=== PATIENT | male | born 1975 | race Hispanic/Latino ===

== ENCOUNTER 2018-08-01 10:15 | Emergency (ER) | payer OTHER ==
[2018-08-01] MEDS ORDERED: IPRATROPIUM/ALBUTEROL SULFATE 3 ML SOLUTION IH ONE (11:26)
== END 2018-08-01 11:55 | disposition home or self-care (01) ==
LOC: EDH 10:15
DX: J20.9 Acute bronchitis, unspecified (principal); I10 Essential (primary) hypertension
CPT/HCPCS: 71046; 94640

== ENCOUNTER → 2022-03-29 | Outpatient (CLI) | payer OTHER ==
[~2022-03-29] MED LIST: ALBUTEROL 0.083% 2.5 MG/3 ML INH IH ONE
== END | disposition home or self-care (01) ==
LOC: RESP 10:16
DX: R53.83 Other fatigue (principal); Z86.16 Personal history of COVID-19
CPT/HCPCS: 94060; 94727; 94729

== ENCOUNTER 2023-01-03 16:14 | Emergency (ER) | payer OTHER ==
[~2023-01-03] VITALS: Ht 172.7 cm; Wt 79.4 kg
[2023-01-03 16:23] VITALS: BP 158/97
[2023-01-03] MEDS ORDERED: VALA10002 PO (16:45)
[2023-01-03] MEDS ORDERED: PRED50TA2 PO (16:45)
== END 2023-01-03 16:50 | disposition home or self-care (01) ==
LOC: EDH 16:14
DX: G51.0 Bell's palsy (principal); I10 Essential (primary) hypertension; Z79.899 Other long term (current) drug therapy
CPT/HCPCS: 82948

== ENCOUNTER 2024-11-14 21:26 | Inpatient (IN) | payer OTHER ==
[~2024-11-14] VITALS: Ht 172.7 cm; Wt 78.9 kg
[~2024-11-14 21:26] MED LIST changes: -ALBUTEROL 0.083% 2.5 MG/3 ML INH IH ONE; +PRED50TA2 PO; +VALA10002 PO
--- NOTE | 2024-11-14 21:52 | ERN ---
General Chief Complaint: Skin Problem Stated Complaint: LEFT FOOT SWOLLEN Time Seen by MD: 21:36 Source: patient History of Present Illness Initial Comments Is a 49-year-old male who comes in because of increased feeling of burning redness and swelling in his bilateral feet and hands. Patient states he did take some Benadryl but it did not help in the swelling persisted. He says it started after taking some Bactrim that his primary care doctor prescribed to him because of a possible pimple starting on the patient's buttocks. He has only taken two doses of the Bactrim and has stopped. Otherwise the patient is asymptomatic no upper respiratory tract infections no change in bowel habits. Able to move all his extremities no fevers or chills. No shortness of breath, no wheezing Allergies: Coded Allergies: No Known Drug Allergies (Unverified Allergy, Unknown, 01/03/23) Home Meds Active Scripts Prednisone (Prednisone) 50 Mg Tablet, 50 MG PO DAILY for 5 Days, #5 TAB 0 Refills Prov:AICHA GRANADOS MD 01/03/23 Valacyclovir HCl (Valtrex) 1,000 Mg Tablet, 1000 MG PO TID for 7 Days, #21 TAB 0 Refills Prov:AICHA GRANADOS MD 01/03/23 Past Medical History Past Medical History: Hypertension Past Surgical History: None Social History Social History: Negative Constitutional: (-) chills, (-) diaphoresis, (-) fever, (-) malaise, (-) weakness, (-) other documentation EENTM: (-) eye pain, (-) blurred vision, (-) tearing, (-) double vision, (-) ear pain, (-) ear discharge, (-) nose pain, (-) nose congestion, (-) throat pain, (-) Throat swelling, (-) mouth pain, (-) tooth pain, (-) mouth swelling, (-) other documentation Respiratory: (-) cough, (-) orthopnea, (-) short of breath, (-) stridor, (-) wheezing, (-) other documentation Cardiovascular: (-) chest pain, (-) edema, (-) palpitations, (-) syncope, (-) dyspnea on exertion, (-) other documentation Gastrointestinal/Abdominal: (-) nausea, (-) vomiting, (-) diarrhea, (-) abdominal pain, (-) abdominal distention, (-) constipation, (-) rectal bleeding, (-) dark stool/melena, (-) other documentation Musculoskeletal: (-) Neck pain, (-) back pain, (-) Flank Pain, (-) joint pain, (-) joint swelling, (-) muscle pain, (-) muscle stiffness, (-) gout, (-) other documentation Skin: (-) laceration, (-) contusion, (-) abrasion, (-) abscess, (-) rash, (-) change in color, (-) change in hair, (-) change in nails, (-) diaphoresis, (-) dryness, (-) other documentation Neuro: (-) altered mental status, (-) headache, (-) syncope, (-) paralysis, (-) numbness, (-) seizure, (-) pre-existing deficit, (-) tremors, (-) weakness, (-) dizziness, (-) slurred speech, (-) vertigo, (-) other documentation Physical Exam General Appearance: (+) no apparent distress Orientation: (+) oriented x 3 Head/Face Trauma: No Eye: bilateral eye normal inspection, bilateral eye PERRL, bilateral eye EOMI Ear, Nose, Throat: (+) hearing grossly normal, (+) normal ENT inspection Neck: (+) normal inspection, (+) supple Respiratory: (+) chest non-tender, (+) lungs clear, (+) well ventilated Heart: (+) regular, (+) no gallop Vascular: (+) no edema, (+) normal peripheral pulse, (+) no JVD Gastrointestinal: (+) soft, (+) non-tender, (+) bowel sound present Extremities Comment Patient does indeed have erythema with swelling on both feet centered around the great toes and including the web spaces. There was a blister on his left great toe. Bilateral hands also have erythema with mild swelling between the 2nd and 3rd digits and web spaces. Results Laboratory and Microbiology Lab and Micro Result Laboratory Tests Test 11/14/24 22:02 White Blood Count 10.4 K/uL (4.8-10.8) Red Blood Count 4.91 MIL/uL (4.50-6.20) Hemoglobin 14.4 g/dL (14.0-18.0) Hematocrit 43.4 % (42-54) Mean Corpuscular Volume 88.4 fL (79-99) Mean Corpuscular Hemoglobin 29.3 pg (27.0-33.0) Mean Corpuscular Hemoglobin Concent 33.2 g/dL (32.0-36.0) Red Cell Distribution Width 13.5 % (11.0-15.5) Platelet Count 281 K/uL (130-400) Mean Platelet Volume 8.9 fL (7.5-10.5) Immature Granulocyte % (Auto) 1.1 % (0-1) H Neutrophils (%) (Auto) 70.5 % (40.0-77.0) Lymphocytes (%) (Auto) 12.0 % (21.0-51.0) L Monocytes (%) (Auto) 8.9 % (3.0-13.0) Eosinophils (%) (Auto) 7.1 % (0.0-8.0) Basophils (%) (Auto) 0.4 % (0.0-5.0) Neutrophils # (Auto) 7.3 K/uL (1.8-7.7) Lymphocytes # (Auto) 1.2 K/uL (1.0-4.8) Monocytes # (Auto) 0.9 K/uL (0.1-1.0) Eosinophils # (Auto) 0.74 K/uL (0.00-0.70) H Basophils # (Auto) 0.04 K/uL (0.00-0.20) Absolute Immature Granulocyte (auto 0.11 K/uL (0-1) Nucleated Red Blood Cells 0.0 % (0.0-0.19) Sodium Level 137 mmol/L (136-145) Potassium Level 3.8 mmol/L (3.5-5.1) Chloride Level 103 mmol/L (101-111) Carbon Dioxide Level 29 mmol/L (21-32) Blood Urea Nitrogen 21 mg/dL (7-18) H Creatinine 1.2 mg/dL (0.5-1.3) Glomerular Filtration Rate Calc 73 mL/min (>90) Random Glucose 107 mg/dL (70-105) H Total Calcium 8.6 mg/dL (8.5-10.1) MDM Patient with erythema and swelling on his fingers and toes after taking two doses of Bactrim. The erythema and swelling is not the typical rash for a Johnson Aldair syndrome, but this does not rule out Johnson-Aldair syndrome. I will give the patient some IV steroids. I think the patient needs to be observed for several hours be sure this erythema does not spread and turn into something serious. Order written at 10:00 p.m.. Laboratory results have come back patient has a normal white cell count but he does have eosinophilia. His chemistry panel is also normal. His rash has not receded in his still warm even after the dose of steroids. This most likely is a drug reaction to the Bactrim. The patient needs to be admitted to the hospital for observation to be sure he does not experience anaphylaxis or that his rash spreads. Going out on a limb I will order blood cultures. I will also order clindamycin. I examined the patient's lesion on his buttocks for which his primary care doctor prescribed the Bactrim. It looks like a simple pigmented lesion there was no erythema there is no warmth there is no swelling. Patient agrees to be admitted for observation. Hospitalist service has agreed to admit the patient for observation. ED Course Orders Procedure Category Date Status Time Methylprednisolone PHA 11/14/24 Complete Succ 40mg (Solu-Medro 22:00 Cbc With Differential LAB 11/14/24 Complete 21:53 Basic Metabolic Panel LAB 11/14/24 Complete 21:53 Diphenhydramine Hcl PHA 11/14/24 Complete (Benadryl Inj) 22:30 Famotidine 20mg Vial PHA 11/14/24 Complete (Pepcid 20mg Vial) 22:30 Blood Cult AROLDO 11/15/24 In Process 00:00 Clindamycin Ivpb PHA 11/15/24 Complete 900mg/50ml (Cleocin 00:30 Current Medications Medications (Trade) Dose Ordered Sig/Veronica Route PRN Reason Start Time Stop Time Status Last Admin Dose Admin Clindamycin HCl/ Dextrose (Cleocin Ivpb 900mg) 900 mg ONCE ONCE IV 11/15/24 00:30 11/15/24 00:31 DC Diphenhydramine HCl (BENAdryl INJ) 25 mg ONCE ONCE IV 11/14/24 22:30 11/14/24 22:31 DC 11/14/24 22:25 Famotidine (Pepcid 20mg Vial) 20 mg ONCE ONCE IV 11/14/24 22:30 11/14/24 22:31 DC 11/14/24 22:25 Methylprednisolone Sodium Succinate (Solu-medROL 40MG) 40 mg ONCE ONCE IVP 11/14/24 22:00 11/14/24 22:01 DC 11/14/24 22:17 Vital Signs Date Time Temp Pulse Resp B/P (MAP) Pulse Ox O2 Delivery O2 Flow Rate FiO2 11/14/24 23:01 94 16 145/87 99 Room Air* 0 21 11/14/24 21:32 99.5 102 20 148/101 100 Room Air DX & DISP Disposition: Inpatient Departure Impression: Primary Impression: Drug reaction Condition: Stable Referrals: JEAN CLAUDE DEL CASTILLO MD (PCP) LOREN MAYO MD Nov 14, 2024 21:52
[2024-11-14 22:08] LABS: BASOPHILS # (AUTO) 0.04 K/uL (0.00-0.20); BASOPHILS % (AUTO) 0.4 % (0.0-5.0); EOSINOPHILS # (AUTO) 0.74 K/uL (0.00-0.70); EOSINOPHILS % (AUTO) 7.1 % (0.0-8.0); HEMATOCRIT 43.4 % (42-54); IMMATURE GRANULOCYTE ABSOLUTE 0.11 K/uL (0-1); LYMPHOCYTES # (AUTO) 1.2 K/uL (1.0-4.8); MEAN CORPUSCULAR HEMOGLOBIN 29.3 pg (27.0-33.0); MEAN CORPUSCULAR HGB CONC 33.2 g/dL (32.0-36.0); MEAN CORPUSCULAR VOLUME 88.4 fL (79-99); MONOCYTES # (AUTO) 0.9 K/uL (0.1-1.0); MONOCYTES % (AUTO) 8.9 % (3.0-13.0); NEUTROPHILS # (AUTO) 7.3 K/uL (1.8-7.7); NEUTROPHILS % (AUTO) 70.5 % (40.0-77.0); PLATELET COUNT (AUTO) 281 K/uL (130-400); RED BLOOD CELL COUNT(AUTO) 4.91 MIL/uL (4.50-6.20); RED CELL DISTRIBUTION WIDTH 13.5 % (11.0-15.5); WHITE BLOOD COUNT (AUTO) 10.4 K/uL (4.8-10.8)
[2024-11-14] MEDS: Solu-medROL 40MG VIAL IVP ONE (22:17)
[2024-11-14 22:23] LABS: CREATININE 1.2 mg/dL (0.5-1.3); POTASSIUM 3.8 mmol/L (3.5-5.1)
[2024-11-14] MEDS: FAMOTIDINE 20MG VIAL IV ONE (22:25)
[2024-11-14] MEDS: DiphenhydrAMINE HCL 50 MG/ML VIAL IV ONE (22:25)
[2024-11-15] VITALS (7 sets, daily range): BP systolic 126–140; BP diastolic 70–85; PULSE 78–87; RESP 12–20; TEMP 98.3–98.7; O2SAT 96
[2024-11-15] MEDS: CLINDAMYCIN IVPB 900MG/50ML IV ONE (00:51)
--- NOTE | 2024-11-15 01:46 | HP ---
[facility] Date of Service: Nov 15, 2024 Time of Service: 00:45 PCP: Erik Gordon HISTORY OF PRESENT ILLNESS: This is a 49-year-old male with past medical history of hypertension who presents to the ED for complaints of burning redness and swelling of both hands and feet.Patient reports he has a pimple ,possible boil on his right buttock and saw his PCP yesterday and prescribed him with Bactrim and he took 2 doses of it in total and he stopped because he developed sudden onset of above symptoms and he also noticed around his body and he has blister also on his left foot and right hand and patient took Benadryl but to no relief .Patient reports he developed chills and body aches so he decided to come to the ED for evaluation . Upon ER arrival vital signs temperature 99.5, heart rate 102, blood pressure 148/101 saturation 100% on room air. Seen and examined patient in the ER awake,alert and coherent,appears comfortable .Patient denies nausea,vomiting,chest pain,palpitation,shortness of breath, tongue swelling, and abdominal pain. Latest vital signs heart rate 94, blood pressure 145/87 saturation 99% on room air. Labs: WBC 10, hemoglobin 14, hematocrit 43 platelet count 281, Eosinophils 0.74. BUN 21, creatinine 1.2, GFR 73 glucose 107, total calcium 8.6. While in the ER patient received Solu- Medrol 40 mg IV, Benadryl 25 mg IV, famotidine 20 mg IV and clindamycin 900 mg IV. We will admit patient for further medical management. REVIEW OF SYSTEMS CONSTITUTIONAL: Complained of chills and body aches Denies fevers or night sweats. No unintentional weight loss reported. NEUROLOGICAL: Denies headache, amaurosis fugax, motor weakness, sensory deficit, vertigo/spinning sensation, gait abnormalities, or tremors. ENT: No hearing loss, otalgia, otorrhea, rhinitis, rhinorrhea, hoarseness, or sore throat. CARDIOVASCULAR: Denies any exertional angina, dyspnea on exertion, orthopnea, paroxysmal nocturnal dyspnea, palpitations, life-threatening arrhythmias, claudication. PULMONARY: Denies any shortness of breath, cough, phlegm/sputum, hemoptysis, pleuritic chest pain. SLEEP: Denies morning headaches, daytime somnolence or napping. Denies difficulty falling asleep, staying asleep, waking from sleep. Denies knowledge of snoring. GASTROINTESTINAL: Denies any type of dysphagia to either liquids or solids. Denies nausea, vomiting, pyrosis, early satiety, abdominal pain, diarrhea, constipation, or changes in stool consistency or caliber. Denies coffee-ground emesis, hematemesis, hematochezia, or melanotic stools. GENITOURINARY: Denies frequency, urgency, nocturia, hematuria or incontinence (Storage/Irritative symptoms.) Low urinary stream, straining to void, urinary intermittency or hesitancy, splitting of the voiding stream, terminal dribbling. ENDOCRINOLOGIC: Denies polyuria, polydipsia, polyphagia or heat/cold intolerances. HEMATOLOGIC: Denies thrombophilia/previous clots, or coagulopathy/bleeding disorders. ONCOLOGIC: Denies personal history of malignancy. DERMATOLOGIC: Complained of Burning redness of both hands and feet. Redness on the abdomen PSYCHIATRIC: Denies any suicidal or homicidal ideation. Denies hallucinations. PAST MEDICAL HISTORY: [Hypertension ] PAST SURGICAL HISTORY: [ None ] PAST SOCIAL HISTORY: [ Patient lives with .Patient denies alcohol,cigarette and recreational drug use ] FAMILY HISTORY: [ Noncontributory ] Coded Allergies: No Known Drug Allergies (Unverified Allergy, Unknown, 01/03/23) PHYSICAL EXAM GENERAL APPEARANCE: The patient is awake, alert, and oriented, in no acute cardiopulmonary distress. NEUROLOGICAL: Cranial nerves II-XII grossly intact. Motor is 5/5 in bilateral upper and lower extremities proximal to distal. No sensory deficits. HEENT: Face is symmetric. Pupils are equal and reactive. Extraocular movements are intact. NECK: Supple. No JVD. No thyromegaly. No submental, submandibular, pre- /postauricular, occipital or supraclavicular lymphadenopathy. CHEST: Normal chest expansion. No Telemetry. LUNGS: Absence of any rales, rhonchi or any wheezing. CARDIOVASCULAR: Regular. S1 and S2 normal. No appreciable rubs, murmurs or gallops. ABDOMEN: Soft, nontender, and nondistended. There is no rebound, voluntary guarding, or rigidity. : Deferred. No Becker. EXTREMITIES: Non-edematous and not cyanotic. No clubbing. Good capillary refi ll. SKIN: Erythema to both feet and hands left foot blister right hand blister. Boil to right buttock Vital Sign (Last 24 Hours) 11/14/24 11/14/24 21:32 23:01 Temp 99.5 Pulse 94 Resp 16 B/P (MAP) 145/87 Pulse Ox 99 O2 Delivery Room Air* O2 Flow Rate 0 FiO2 21 LABS: Laboratory: Test 11/14/24 22:02 Range/Units White Blood Count 10.4 4.8-10.8 K/uL Red Blood Count 4.91 4.50-6.20 MIL/uL Hemoglobin 14.4 14.0-18.0 g/dL Hematocrit 43.4 42-54 % Mean Corpuscular Volume 88.4 79-99 fL Mean Corpuscular Hemoglobin 29.3 27.0-33.0 pg Mean Corpuscular Hemoglobin Concent 33.2 32.0-36.0 g/dL Red Cell Distribution Width 13.5 11.0-15.5 % Platelet Count 281 130-400 K/uL Mean Platelet Volume 8.9 7.5-10.5 fL Immature Granulocyte % (Auto) 1.1 H 0-1 % Neutrophils (%) (Auto) 70.5 40.0-77.0 % Lymphocytes (%) (Auto) 12.0 L 21.0-51.0 % Monocytes (%) (Auto) 8.9 3.0-13.0 % Eosinophils (%) (Auto) 7.1 0.0-8.0 % Basophils (%) (Auto) 0.4 0.0-5.0 % Neutrophils # (Auto) 7.3 1.8-7.7 K/uL Lymphocytes # (Auto) 1.2 1.0-4.8 K/uL Monocytes # (Auto) 0.9 0.1-1.0 K/uL Eosinophils # (Auto) 0.74 H 0.00-0.70 K/uL Basophils # (Auto) 0.04 0.00-0.20 K/uL Absolute Immature Granulocyte (auto 0.11 0-1 K/uL Nucleated Red Blood Cells 0.0 0.0-0.19 % Sodium Level 137 136-145 mmol/L Potassium Level 3.8 3.5-5.1 mmol/L Chloride Level 103 101-111 mmol/L Carbon Dioxide Level 29 21-32 mmol/L Blood Urea Nitrogen 21 H 7-18 mg/dL Creatinine 1.2 0.5-1.3 mg/dL Glomerular Filtration Rate Calc 73 >90 mL/min Random Glucose 107 H 70-105 mg/dL Total Calcium 8.6 8.5-10.1 mg/dL DIAGNOSTICS / RADIOLOGY: [ ] ASSESSMENT: Severe allergic reaction to Bactrim POA Suspected drug -induced skin reaction concern for bullous drug eruption POA Possible Furuncle of the right gluteal region POA Hypertension POA PLAN: We will admit patient in medical floor We we will start patient on clear diet We will start NS @ 100 ml / hr and re evaluate We will continue clindamycin IV Q 8 hours for empiric coverage We will start patient on methylprednisolone 40 mg IV daily x 2 doses and re evaluate We will start on Famotidine 20 mg IV bid for GI prophylaxis We will replace electrolytes as needed per protocol We will add prn medication for fever,pain,cough , nausea and vomiting We will reconcile home meds once medlist available We will seek wound care eval and management service We will request labs in am Further orders to follow depending on above results Case discussed with attending physician and came up with above treatment and plan of care. ADVANCED CARE PLANNING 1. Which of the following were discussed? Hospice Care - No Therapeutic options - Yes Advance Directives - No Other discussions - 2. Discussed with who? Patient 3. Voluntary nature of this service was explained to the patient? Yes 4. Amount of time spent - __20 5. Reviewed by Physician? (if this service was performed by NPP) Yes Patient seen and examined by me. Agree with note by PERSONNEL QUALITY ASSURANCE AUDITOR SEE ADDITIONAL ORDERS PER CHART DISCUSSED WITH NURSING STAFF JAIR MCGUIRE GLUING MACHINE OFFBEARER Nov 15, 2024 01:46
[2024-11-15] MEDS ORDERED: acetaMINOPHEN 325 MG TAB PO PRN (02:00)
[2024-11-15] MEDS ORDERED: DiphenhydrAMINE HCL 50 MG/ML VIAL IV PRN (02:00)
[2024-11-15] MEDS ORDERED: hydrALAZine 20MG/ML VIAL IV PRN (02:00)
[2024-11-15] MEDS ORDERED: ketOROlac 15MG/ML VIAL (15MG/ML) IV PRN (02:00)
[2024-11-15] MEDS ORDERED: ondanSETRON 4MG INJ IV PRN (02:00)
--- NOTE | 2024-11-15 03:00 | NUR ---
ADMIT PT ADMITTED TO ROOM 305, AAOX4. NOTED 2 BLISTERS TO LEFT FOOT WITH SWELLING. DENIES ANY PAINS AT THIS TIME. HUNG IVF OF NS REGULATED AT 100CC/HR. ADMISSION CARE DONE. ADMISSION DATA BASE COMPLETED. ORIENTED TO ROOM AND UNIT. CALL LIGHT WITHIN REACH. IN FOR MORE CARE AND MANAGEMENT. Addendum: 11/15/24 at 0338 by MATT MCCORD RN RN Amended: Links added.
[2024-11-15] MEDS: 0.9%NACL 1000ML 1,000 ML IV SCH (03:05)
[2024-11-15] MEDS ORDERED: AMLO-258 PO (03:14)
[2024-11-15] MEDS ORDERED: SULF1TAB42 PO (03:14)
--- NOTE | 2024-11-15 05:24 | NUR ---
ROUNDS PT RESTING WELL, FAIRLY ASLEEP WITH RESPIRATIONS EVEN AND UNLABORED. NO DISTRESS NOTED. KEPT RESTED AND COMFORTABLE. FOR MORE CARE.
[2024-11-15 06:25] LABS: BASOPHILS # (AUTO) 0.02 K/uL (0.00-0.20); BASOPHILS % (AUTO) 0.3 % (0.0-5.0); EOSINOPHILS # (AUTO) 0.01 K/uL (0.00-0.70); EOSINOPHILS % (AUTO) 0.1 % (0.0-8.0); HEMATOCRIT 43.7 % (42-54); IMMATURE GRANULOCYTE ABSOLUTE 0.11 K/uL (0-1); LYMPHOCYTES % (AUTO) 12.8 % (21.0-51.0); MEAN CORPUSCULAR HEMOGLOBIN 29.2 pg (27.0-33.0); MEAN CORPUSCULAR HGB CONC 32.7 g/dL (32.0-36.0); MEAN CORPUSCULAR VOLUME 89.2 fL (79-99); MONOCYTES # (AUTO) 0.1 K/uL (0.1-1.0); MONOCYTES % (AUTO) 1.5 % (3.0-13.0); NEUTROPHILS # (AUTO) 6.6 K/uL (1.8-7.7); NEUTROPHILS % (AUTO) 83.9 % (40.0-77.0); PLATELET COUNT (AUTO) 274 K/uL (130-400); RED CELL DISTRIBUTION WIDTH 13.5 % (11.0-15.5); WHITE BLOOD COUNT (AUTO) 7.8 K/uL (4.8-10.8)
[2024-11-15 07:29] LABS: ALBUMIN 3.5 g/dL (3.5-5.0); BILIRUBIN,TOTAL 0.5 mg/dL (0.2-1.0); MAGNESIUM 2.1 mg/dL (1.80-2.40); POTASSIUM 4.7 mmol/L (3.5-5.1); TOTAL PROTEIN, SERUM 6.9 g/dL (6.0-8.3)
[2024-11-15 08:15] LABS: ERYTHROCYTE SEDIMENTATION RATE 6 MM/HR (0-20)
[2024-11-15] MEDS: CLINDAMYCIN IVPB 600MG/50ML 50 ML IV SCH (08:44)
[2024-11-15] MEDS: FAMOTIDINE 20MG VIAL IV SCH (08:44)
[2024-11-15] MEDS: Solu-medROL 40MG VIAL IVP SCH (08:44)
--- NOTE | 2024-11-15 13:51 | NUR ---
DCP: INITIAL ASSESSMENT Patient lives with mother. He has no home services. DME: BPM. Patient is able to complete ADLs independently and drives. PCP is Dr. Evan Trujillo. Pharmacy is [facility] in [place]. Patient voiced no safety concerns regarding returning home and states she has no difficulty with housing or buying food. DCP is home. Addendum: 11/15/24 at 1354 by ALESSIA GILMAN SS Amended: Links added.
[2024-11-15] MEDS: DOXYCYCLINE 100MG+NS 250ML 250 ML IV SCH (14:45)
--- NOTE | 2024-11-15 15:53 | HMCIMG ---
CT LOW EXT W/O CONTRAST HISTORY: left foot wound TECHNIQUE: CT LOW EXT W/O CONTRAST. Axial images of the left foot were performed. Coronal and sagittal reformats were obtained. FINDINGS/IMPRESSION: No displaced fracture or dislocation is seen. Mild diffuse soft tissue swelling is noted. No definite erosive changes are seen to suggest osteomyelitis. Correlate clinically.
[2024-11-16] VITALS (7 sets, daily range): BP systolic 121–137; BP diastolic 72–82; PULSE 69–79; RESP 12–20; TEMP 97.6–98.1; O2SAT 96
[2024-11-16 04:56] LABS: BASOPHILS # (AUTO) 0.02 K/uL (0.00-0.20); BASOPHILS % (AUTO) 0.1 % (0.0-5.0); HEMATOCRIT 41.3 % (42-54); IMMATURE GRANULOCYTE ABSOLUTE 0.12 K/uL (0-1); LYMPHOCYTES # (AUTO) 1.5 K/uL (1.0-4.8); LYMPHOCYTES % (AUTO) 10.5 % (21.0-51.0); MEAN CORPUSCULAR HEMOGLOBIN 29.7 pg (27.0-33.0); MEAN CORPUSCULAR HGB CONC 33.2 g/dL (32.0-36.0); MEAN CORPUSCULAR VOLUME 89.4 fL (79-99); MONOCYTES # (AUTO) 0.6 K/uL (0.1-1.0); MONOCYTES % (AUTO) 4.6 % (3.0-13.0); NEUTROPHILS # (AUTO) 11.6 K/uL (1.8-7.7); NEUTROPHILS % (AUTO) 83.9 % (40.0-77.0); PLATELET COUNT (AUTO) 274 K/uL (130-400); RED BLOOD CELL COUNT(AUTO) 4.62 MIL/uL (4.50-6.20); RED CELL DISTRIBUTION WIDTH 13.8 % (11.0-15.5); WHITE BLOOD COUNT (AUTO) 13.8 K/uL (4.8-10.8)
[2024-11-16 05:36] LABS: ALBUMIN 3.3 g/dL (3.5-5.0); BILIRUBIN,TOTAL 0.3 mg/dL (0.2-1.0); CREATININE 0.9 mg/dL (0.5-1.3); POTASSIUM 4.9 mmol/L (3.5-5.1); TOTAL PROTEIN, SERUM 6.7 g/dL (6.0-8.3)
[2024-11-16] MEDS: DiphenhydrAMINE HCL 25 MG CAPSULE PO SCH (12:27)
--- NOTE | 2024-11-16 12:32 | PN ---
[facility] PROGRESS NOTE Date of Service: Nov 16, 2024 Time of Service: 12:16 SUBJECTIVE: [49-year-old male with past medical history of hypertension who presents to the ED for complaints of burning redness and swelling of both hands and feet.Patient reports he has a pimple ,possible boil on his right buttock and saw his PCP yesterday and prescribed him with Bactrim and he took 2 doses of it in total and he stopped because he developed sudden onset of above symptoms and he also noticed around his body and he has blister also on his left foot and right hand and patient took Benadryl but to no relief .Patient reports he developed chills and body aches so he decided to come to the ED for evaluation . Upon ER arrival vital signs temperature 99.5, heart rate 102, blood pressure 148/101 saturation 100% on room air. Seen and examined patient in the ER awake,alert and coherent,appears comfortable .Patient denies nausea,vomiting,chest pain,palpitation,shortness of breath, tongue swelling, and abdominal pain. Latest vital signs heart rate 94, blood pressure 145/87 saturation 99% on room air. Labs: WBC 10, hemoglobin 14, hematocrit 43 platelet count 281, Eosinophils 0.74. BUN 21, creatinine 1.2, GFR 73 glucose 107, total calcium 8.6. While in the ER patient received Solu- Medrol 40 mg IV, Benadryl 25 mg IV, famotidine 20 mg IV and clindamycin 900 mg IV. We will admit patient for further medical management. 11/16/2024. Patient was seen and examined yesterday and today along with RN. The blister on the left toe is slightly enlarged but the plantar surface blister on the left foot is better the rash on the abdomen is gone totally resolve, his CRP has decreased almost 50%. CT scan of the foot was done no abscess identified soft tissue swelling only. He will be seen by infectious disease doctor and wound care. He is continued on IV steroids, IV doxycycline IV Pepcid and p.r.n. Benadryl] REVIEW OF SYSTEMS CONSTITUTIONAL: Complained of chills and body aches Denies fevers or night sweats. No unintentional weight loss reported. NEUROLOGICAL: Denies headache, amaurosis fugax, motor weakness, sensory deficit, vertigo/spinning sensation, gait abnormalities, or tremors. ENT: No hearing loss, otalgia, otorrhea, rhinitis, rhinorrhea, hoarseness, or sore throat. CARDIOVASCULAR: Denies any exertional angina, dyspnea on exertion, orthopnea, paroxysmal nocturnal dyspnea, palpitations, life-threatening arrhythmias, claudication. PULMONARY: Denies any shortness of breath, cough, phlegm/sputum, hemoptysis, pleuritic chest pain. SLEEP: Denies morning headaches, daytime somnolence or napping. Denies difficulty falling asleep, staying asleep, waking from sleep. Denies knowledge of snoring. GASTROINTESTINAL: Denies any type of dysphagia to either liquids or solids. Denies nausea, vomiting, pyrosis, early satiety, abdominal pain, diarrhea, c onstipation, or changes in stool consistency or caliber. Denies coffee-ground emesis, hematemesis, hematochezia, or melanotic stools. GENITOURINARY: Denies frequency, urgency, nocturia, hematuria or incontinence (Storage/Irritative symptoms.) Low urinary stream, straining to void, urinary intermittency or hesitancy, splitting of the voiding stream, terminal dribbling. ENDOCRINOLOGIC: Denies polyuria, polydipsia, polyphagia or heat/cold intolerances. HEMATOLOGIC: Denies thrombophilia/previous clots, or coagulopathy/bleeding disorders. ONCOLOGIC: Denies personal history of malignancy. DERMATOLOGIC: Complained of Burning redness of both hands and feet. Redness on the abdomen PSYCHIATRIC: Denies any suicidal or homicidal ideation. Denies hallucinations. PHYSICAL EXAM GENERAL APPEARANCE: The patient is awake, alert, and oriented, in no acute cardiopulmonary distress. NEUROLOGICAL: Cranial nerves II-XII grossly intact. Motor is 5/5 in bilateral upper and lower extremities proximal to distal. No sensory deficits. HEENT: Face is symmetric. Pupils are equal and reactive. Extraocular movements are intact. NECK: Supple. No JVD. No thyromegaly. No submental, submandibular, pre- /postauricular, occipital or supraclavicular lymphadenopathy. CHEST: Normal chest expansion. No Telemetry. LUNGS: Absence of any rales, rhonchi or any wheezing. CARDIOVASCULAR: Regular. S1 and S2 normal. No appreciable rubs, murmurs or gallops. ABDOMEN: Soft, nontender, and nondistended. There is no rebound, voluntary guarding, or rigidity. : Deferred. No Becker. EXTREMITIES: Non-edematous and not cyanotic. No clubbing. Good capillary refill. SKIN: Erythema to both feet and hands left foot blister right hand blister. Boil to right buttock Vital Signs (last 8hr) Date Time Temp Pulse Resp B/P (MAP) Pulse Ox O2 Delivery O2 Flow Rate FiO2 11/16/24 12:00 97.9 72 20 131/82 94 Room Air 11/16/24 08:00 97.7 72 20 128/72 96 Room Air LABS: Laboratory: Test 11/16/24 04:28 11/15/24 06:04 Range/Units White Blood Count 13.8 #H 4.8-10.8 K/uL Red Blood Count 4.62 4.50-6.20 MIL/uL Hemoglobin 13.7 L 14.0-18.0 g/dL Hematocrit 41.3 L 42-54 % Mean Corpuscular Volume 89.4 79-99 fL Mean Corpuscular Hemoglobin 29.7 27.0-33.0 pg Mean Corpuscular Hemoglobin Concent 33.2 32.0-36.0 g/dL Red Cell Distribution Width 13.8 11.0-15.5 % Platelet Count 274 130-400 K/uL Mean Platelet Volume 9.3 7.5-10.5 fL Immature Granulocyte % (Auto) 0.9 0-1 % Neutrophils (%) (Auto) 83.9 H 40.0-77.0 % Lymphocytes (%) (Auto) 10.5 L 21.0-51.0 % Monocytes (%) (Auto) 4.6 3.0-13.0 % Eosinophils (%) (Auto) 0.0 0.0-8.0 % Basophils (%) (Auto) 0.1 0.0-5.0 % Neutrophils # (Auto) 11.6 H 1.8-7.7 K/uL Lymphocytes # (Auto) 1.5 1.0-4.8 K/uL Monocytes # (Auto) 0.6 0.1-1.0 K/uL Eosinophils # (Auto) 0.00 0.00-0.70 K/uL Basophils # (Auto) 0.02 0.00-0.20 K/uL Absolute Immature Granulocyte (auto 0.12 0-1 K/uL Nucleated Red Blood Cells 0.0 0.0-0.19 % Sodium Level 141 136-145 mmol/L Potassium Level 4.9 3.5-5.1 mmol/L Chloride Level 108 101-111 mmol/L Carbon Dioxide Level 26 21-32 mmol/L Blood Urea Nitrogen 17 7-18 mg/dL Creatinine 0.9 0.5-1.3 mg/dL Glomerular Filtration Rate Calc 103 >90 mL/min Random Glucose 137 H 70-105 mg/dL Total Calcium 8.6 8.5-10.1 mg/dL Total Bilirubin 0.3 # 0.2-1.0 mg/dL Aspartate Amino Transf (AST/SGOT) 17 10-37 U/L Alanine Aminotransferase (ALT/SGPT) 27 12-78 U/L Alkaline Phosphatase 84 50-136 U/L C-Reactive Protein, Quantitative 21.00 H 0.5-3.0 mg/L Total Protein 6.7 6.0-8.3 g/dL Albumin 3.3 L 3.5-5.0 g/dL Procalcitonin < 0.05 L 0.05-0.5 ng/mL Erythrocyte Sedimentation Rate 6 0-20 MM/HR Lactic Acid Level 1.1 0.8-2.5 mmol/L Magnesium Level 2.10 1.80-2.40 mg/dL Current Medications Medications (Trade) Dose Ordered Sig/Veronica Route PRN Reason Start Time Stop Time Status Last Admin Dose Admin Acetaminophen (TYLenol 325MG TAB) 650 mg Q4H PRN PO MILD PAIN (1-3) 11/15/24 02:00 12/15/24 01:59 Acetaminophen (TYLenol 325MG TAB) 650 mg Q6H PRN PO TEMPERATURE GREATER THAN 101.5 11/15/24 02:00 12/15/24 01:59 Clindamycin HCl/ Dextrose 50 ml @ 100 mls/hr Q8H IV 11/15/24 09:00 11/15/24 10:02 DC 11/15/24 08:44 100 MLS/HR Diphenhydramine HCl (BENAdryl CAP) 25 mg Q8H PO 11/16/24 11:30 12/16/24 11:29 Diphenhydramine HCl (BENAdryl INJ) 25 mg Q6H PRN IV ITCHING 11/15/24 02:00 12/15/24 01:59 Doxycycline Hyclate 250 ml @ 125 mls/hr Q12H IV 11/15/24 14:30 11/25/24 14:29 11/16/24 02:19 125 MLS/HR Famotidine (Pepcid 20mg Vial) 20 mg BID IV 11/15/24 09:00 12/15/24 08:59 11/16/24 09:32 20 MG Hydralazine HCl (APRESOLine 20MG INJ) 10 mg Q6H PRN IV For:SBP above 160;DBP above 90 11/15/24 02:00 12/15/24 01:59 Ketorolac Tromethamine (toRADol) 15 mg Q6H PRN IV MODERATE PAIN (4-6) 11/15/24 02:00 11/20/24 01:59 Methylprednisolone Sodium Succinate (Solu-medROL 40MG) 40 mg BID IVP 11/15/24 09:00 12/15/24 08:59 11/16/24 09:32 40 MG Ondansetron HCl (zoFRAN 4MG INJ) 4 mg Q6H PRN IV NAUSEA/VOMITING 11/15/24 02:00 12/15/24 01:59 Sodium Chloride 1,000 ml @ 100 mls/hr Q10H IV 11/15/24 02:00 12/15/24 01:59 11/16/24 09:32 100 MLS/HR DIAGNOSTICS / RADIOLOGY: [ ] ASSESSMENT: Severe allergic reaction to Bactrim POA Suspected drug -induced skin reaction concern for bullous drug eruption POA Possible Furuncle of the right gluteal region POA Hypertension POA PLAN: Unlikely that patient has Cosme Aldair syndrome or 10 as the reaction happened immediately likely IgE mediated. But does look like Bactrim or sulfa drug associated drug reaction. I have requested Infectious Disease consult as well as wound care consult if indicated we will go for skin biopsy. Does no mucosal lesions , no ocular or lung involvement at this point. There is no eosinophilia. There is no fever and no prodromal symptoms no mucositis or extensive epidermal detachment. Continue IV steroids IV H2 and H1 blockers. GI DVT prophylaxis per protocol ADRIANO MARIN MD Nov 16, 2024 12:32
--- NOTE | 2024-11-16 19:12 | HMCIMG ---
US SOFT TISSUE GROIN REASON: right buttock wound/abscess. COMPARISON: None TECHNIQUE: Right buttock ultrasound study was performed. FINDINGS: Saline as changes are seen with soft tissue hyperemia. In the region of interest, there is small abscess measuring 13 x 6 x 11 mm. IMPRESSION: Right buttock subcutaneous abscess measuring 13 x 6 x 11 mm.
[2024-11-16] MEDS: acetaMINOPHEN 325 MG TAB PO PRN (22:17)
[2024-11-17 03:53] VITALS: BP 124/70; PULSE 66; RESP 12; TEMP 98.4
[2024-11-17 04:38] LABS: BASOPHILS # (AUTO) 0.03 K/uL (0.00-0.20); BASOPHILS % (AUTO) 0.2 % (0.0-5.0); EOSINOPHILS # (AUTO) 0.01 K/uL (0.00-0.70); EOSINOPHILS % (AUTO) 0.1 % (0.0-8.0); HEMATOCRIT 41.1 % (42-54); IMMATURE GRANULOCYTE ABSOLUTE 0.32 K/uL (0-1); LYMPHOCYTES # (AUTO) 1.6 K/uL (1.0-4.8); LYMPHOCYTES % (AUTO) 11.1 % (21.0-51.0); MEAN CORPUSCULAR HEMOGLOBIN 29.5 pg (27.0-33.0); MEAN CORPUSCULAR HGB CONC 32.6 g/dL (32.0-36.0); MEAN CORPUSCULAR VOLUME 90.5 fL (79-99); MONOCYTES # (AUTO) 0.7 K/uL (0.1-1.0); MONOCYTES % (AUTO) 4.9 % (3.0-13.0); NEUTROPHILS # (AUTO) 11.4 K/uL (1.8-7.7); NEUTROPHILS % (AUTO) 81.4 % (40.0-77.0); PLATELET COUNT (AUTO) 275 K/uL (130-400); RED BLOOD CELL COUNT(AUTO) 4.54 MIL/uL (4.50-6.20); RED CELL DISTRIBUTION WIDTH 13.8 % (11.0-15.5)
[2024-11-17 04:57] LABS: ALBUMIN 3.2 g/dL (3.5-5.0); BILIRUBIN,TOTAL 0.3 mg/dL (0.2-1.0); POTASSIUM 4.1 mmol/L (3.5-5.1); TOTAL PROTEIN, SERUM 6.4 g/dL (6.0-8.3)
[2024-11-17 07:39] VITALS: BP 130/82; PULSE 63; RESP 19; TEMP 97.9
[2024-11-17 08:00] VITALS: O2SAT 99
[2024-11-17 12:00] VITALS: BP 146/80; PULSE 63; RESP 19; TEMP 98
[2024-11-17] MEDS ORDERED: VANCOMYCIN PROTOCOL PER PHARMACY IV SCH (12:00)
--- NOTE | 2024-11-17 12:31 | PN ---
[facility] PROGRESS NOTE Date of Service: Nov 17, 2024 Time of Service: 12:21 SUBJECTIVE: 49-year-old male with past medical history of hypertension who presents to the ED for complaints of burning redness and swelling of both hands and feet.Patient reports he has a pimple ,possible boil on his right buttock and saw his PCP yesterday and prescribed him with Bactrim and he took 2 doses of it in total and he stopped because he developed sudden onset of above symptoms and he also noticed around his body and he has blister also on his left foot and right hand and patient took Benadryl but to no relief .Patient reports he developed chills and body aches so he decided to come to the ED for evaluation . Upon ER arrival vital signs temperature 99.5, heart rate 102, blood pressure 148/101 saturation 100% on room air. Seen and examined patient in the ER awake,alert and coherent,appears comfortable .Patient denies nausea,vomiting,chest pain,palpitation,shortness of breath, tongue swelling, and abdominal pain. Latest vital signs heart rate 94, blood pressure 145/87 saturation 99% on room air. Labs: WBC 10, hemoglobin 14, hematocrit 43 platelet count 281, Eosinophils 0.74. BUN 21, creatinine 1.2, GFR 73 glucose 107, total calcium 8.6. While in the ER patient received Solu- Medrol 40 mg IV, Benadryl 25 mg IV, famotidine 20 mg IV and clindamycin 900 mg IV. We will admit patient for further medical management. 11/16/2024. Patient was seen and examined yesterday and today along with RN. The blister on the left toe is slightly enlarged but the plantar surface blister on the left foot is better the rash on the abdomen is gone totally resolve, his CRP has decreased almost 50%. CT scan of the foot was done no abscess identified soft tissue swelling only. He will be seen by infectious disease doctor and wound care. He is continued on IV steroids, IV doxycycline IV Pepcid and p.r.n. Benadryl 11/17/2024: Patient states that his rashes are improving and feels his condition is stable. He complaints of left foot burning sensation near the bleb .Wound care team on board and we will consult Surgery for possible I&D of the rt thigh abscess. WBCs are increasing however CRP is downtrending . REVIEW OF SYSTEMS CONSTITUTIONAL: Complained of chills and body aches Denies fevers or night sweats. No unintentional weight loss reported. NEUROLOGICAL: Denies headache, amaurosis fugax, motor weakness, sensory deficit, vertigo/spinning sensation, gait abnormalities, or tremors. ENT: No hearing loss, otalgia, otorrhea, rhinitis, rhinorrhea, hoarseness, or sore throat. CARDIOVASCULAR: Denies any exertional angina, dyspnea on exertion, orthopnea, paroxysmal nocturnal dyspnea, palpitations, life-threatening arrhythmias, claudication. PULMONARY: Denies any shortness of breath, cough, phlegm/sputum, hemoptysis, pleuritic chest pain. SLEEP: Denies morning headaches, daytime somnolence or napping. Denies difficulty falling asleep, staying asleep, waking from sleep. Denies knowledge of snoring. GASTROINTESTINAL: Denies any type of dysphagia to either liquids or solids. Denies nausea, vomiting, pyrosis, early satiety, abdominal pain, diarrhea, constipation, or changes in stool consistency or caliber. Denies coffee-ground emesis, hematemesis, hematochezia, or melanotic stools. GENITOURINARY: Denies frequency, urgency, nocturia, hematuria or incontinence (Storage/Irritative symptoms.) Low urinary stream, straining to void, urinary intermittency or hesitancy, splitting of the voiding stream, terminal dribbling. ENDOCRINOLOGIC: Denies polyuria, polydipsia, polyphagia or heat/cold intolerances. HEMATOLOGIC: Denies thrombophilia/previous clots, or coagulopathy/bleeding disorders. ONCOLOGIC: Denies personal history of malignancy. DERMATOLOGIC: Complained of Burning redness of both hands and feet. Redness on the abdomen PSYCHIATRIC: Denies any suicidal or homicidal ideation. Denies hallucinations. PHYSICAL EXAM GENERAL APPEARANCE: The patient is awake, alert, and oriented, in no acute cardiopulmonary distress. NEUROLOGICAL: Cranial nerves II-XII grossly intact. Motor is 5/5 in bilateral upper and lower extremities proximal to distal. No sensory deficits. HEENT: Face is symmetric. Pupils are equal and reactive. Extraocular movements are intact. NECK: Supple. No JVD. No thyromegaly. No submental, submandibular, pre- /postauricular, occipital or supraclavicular lymphadenopathy. CHEST: Normal chest expansion. No Telemetry. LUNGS: Absence of any rales, rhonchi or any wheezing. CARDIOVASCULAR: Regular. S1 and S2 normal. No appreciable rubs, murmurs or gallops. ABDOMEN: Soft, nontender, and nondistended. There is no rebound, voluntary guarding, or rigidity. : Deferred. No Becker. EXTREMITIES: Non-edematous and not cyanotic. No clubbing. Good capillary refill. SKIN: Erythema to both feet and hands left foot blister right hand blister. Boil to right buttock Vital Signs (last 8hr) Date Time Temp Pulse Resp B/P (MAP) Pulse Ox O2 Delivery O2 Flow Rate FiO2 11/17/24 07:39 97.9 63 19 130/82 99 Room Air LABS: Laboratory: Test 11/17/24 04:11 11/16/24 04:28 Range/Units White Blood Count 14.0 H 4.8-10.8 K/uL Red Blood Count 4.54 4.50-6.20 MIL/uL Hemoglobin 13.4 L 14.0-18.0 g/dL Hematocrit 41.1 L 42-54 % Mean Corpuscular Volume 90.5 79-99 fL Mean Corpuscular Hemoglobin 29.5 27.0-33.0 pg Mean Corpuscular Hemoglobin Concent 32.6 32.0-36.0 g/dL Red Cell Distribution Width 13.8 11.0-15.5 % Platelet Count 275 130-400 K/uL Mean Platelet Volume 9.3 7.5-10.5 fL Immature Granulocyte % (Auto) 2.3 H 0-1 % Neutrophils (%) (Auto) 81.4 H 40.0-77.0 % Lymphocytes (%) (Auto) 11.1 L 21.0-51.0 % Monocytes (%) (Auto) 4.9 3.0-13.0 % Eosinophils (%) (Auto) 0.1 0.0-8.0 % Basophils (%) (Auto) 0.2 0.0-5.0 % Neutrophils # (Auto) 11.4 H 1.8-7.7 K/uL Lymphocytes # (Auto) 1.6 1.0-4.8 K/uL Monocytes # (Auto) 0.7 0.1-1.0 K/uL Eosinophils # (Auto) 0.01 0.00-0.70 K/uL Basophils # (Auto) 0.03 0.00-0.20 K/uL Absolute Immature Granulocyte (auto 0.32 0-1 K/uL Nucleated Red Blood Cells 0.0 0.0-0.19 % Sodium Level 140 136-145 mmol/L Potassium Level 4.1 3.5-5.1 mmol/L Chloride Level 106 101-111 mmol/L Carbon Dioxide Level 27 21-32 mmol/L Blood Urea Nitrogen 18 7-18 mg/dL Creatinine 1.0 0.5-1.3 mg/dL Glomerular Filtration Rate Calc 91 >90 mL/min Random Glucose 137 H 70-105 mg/dL Total Calcium 8.3 L 8.5-10.1 mg/dL Total Bilirubin 0.3 0.2-1.0 mg/dL Aspartate Amino Transf (AST/SGOT) 17 10-37 U/L Alanine Aminotransferase (ALT/SGPT) 28 12-78 U/L Alkaline Phosphatase 85 50-136 U/L C-Reactive Protein, Quantitative 8.00 H 0.5-3.0 mg/L Total Protein 6.4 6.0-8.3 g/dL Albumin 3.2 L 3.5-5.0 g/dL Procalcitonin < 0.05 L 0.05-0.5 ng/mL Current Medications Medications (Trade) Dose Ordered Sig/Veronica Route PRN Reason Start Time Stop Time Status Last Admin Dose Admin Acetaminophen (TYLenol 325MG TAB) 650 mg Q4H PRN PO MILD PAIN (1-3) 11/15/24 02:00 12/15/24 01:59 11/16/24 22:17 650 MG Acetaminophen (TYLenol 325MG TAB) 650 mg Q6H PRN PO TEMPERATURE GREATER THAN 101.5 11/15/24 02:00 12/15/24 01:59 Clindamycin HCl/ Dextrose 50 ml @ 100 mls/hr Q8H IV 11/15/24 09:00 11/15/24 10:02 DC 11/15/24 08:44 100 MLS/HR Diphenhydramine HCl (BENAdryl CAP) 25 mg Q8H PO 11/16/24 11:30 12/16/24 11:29 11/17/24 02:53 25 MG Diphenhydramine HCl (BENAdryl INJ) 25 mg Q6H PRN IV ITCHING 11/15/24 02:00 12/15/24 01:59 Doxycycline Hyclate 250 ml @ 125 mls/hr Q12H IV 11/15/24 14:30 11/25/24 14:29 11/17/24 01:31 125 MLS/HR Famotidine (Pepcid 20mg Vial) 20 mg BID IV 11/15/24 09:00 12/15/24 08:59 11/17/24 10:20 20 MG Hydralazine HCl (APRESOLine 20MG INJ) 10 mg Q6H PRN IV For:SBP above 160;DBP above 90 11/15/24 02:00 12/15/24 01:59 Ketorolac Tromethamine (toRADol) 15 mg Q6H PRN IV MODERATE PAIN (4-6) 11/15/24 02:00 11/16/24 12:33 DC Methylprednisolone Sodium Succinate (Solu-medROL 40MG) 40 mg BID IVP 11/15/24 09:00 12/15/24 08:59 11/17/24 10:19 40 MG Ondansetron HCl (zoFRAN 4MG INJ) 4 mg Q6H PRN IV NAUSEA/VOMITING 11/15/24 02:00 12/15/24 01:59 Sodium Chloride 1,000 ml @ 100 mls/hr Q10H IV 11/15/24 02:00 12/15/24 01:59 11/17/24 02:20 100 MLS/HR Vancomycin HCl (Vancomycin Protocol) 1 each AD IV 11/17/24 12:00 12/01/24 11:59 DIAGNOSTICS / RADIOLOGY: [ ] ASSESSMENT: Severe allergic reaction to Bactrim POA Suspected drug -induced skin reaction concern for bullous drug eruption POA Acute kidney injury , POA- resolved Drop in hemoglobin secondary to hemodilution Possible Furuncle of the right gluteal region POA Hypertension POA PLAN: Severe allergic reaction to Bactrim POA Suspected drug -induced skin reaction concern for bullous drug eruption POA Unlikely that patient has Cosme Aldair syndrome or TEN as the reaction happened immediately likely IgE mediated. But does look like Bactrim or sulfa drug associated drug reaction. Does not have mucosal lesions , no ocular or lung involvement at this point. There is no eosinophilia. There is no fever and no prodromal symptoms no mucositis or extensive epidermal detachment. Continue IV steroids IV H2 and H1 blockers. ID on board Leukocytosis secondary to Steroids- Not POA- expected Possible Furuncle of the right gluteal region POA US : Right buttock subcutaneous abscess measuring 13 x 6 x 11 mm. Requesting surgery recommendations -patient c/o pain Hypertension POA Stable blood pressures GI DVT prophylaxis per protocol ATTESTATION BY PHYSICIAN I have seen and examined the patient. I reviewed the documentation, medical decision making, and treatment plan as noted by the resident provider above. I agree with the findings and plan of care. NICOLÁS RIDDLE MD, MD Nov 17, 2024 12:31
--- NOTE | 2024-11-17 13:16 | NUR ---
[facility] Consult: Patient assessed by wound healing team. See wound assessment. Assessment and recommendations provided to primary nurse. Education provided. Addendum: 11/18/24 at 1547 by KERA GRIFFITHS RN RN/ Amended: Links added.
[2024-11-17] MEDS: VANCOMYCIN 2GM/500 ML BAG 500 ML IV ONE (15:31)
[2024-11-17 16:00] VITALS: BP 158/92; PULSE 78; RESP 20; TEMP 98
--- NOTE | 2024-11-17 16:41 | CONS ---
CONSULT NOTE: Consulting physician:Dr Batista Consulting service: General surgery Reason for consultation: Right gluteal abscess History of present illness: This is a 49-year-old male consulted to surgery after presenting hospital for concerns of allergic reaction to antibiotic given by PCP concerns of boils right buttock region. Imaging performed and concerns possible abscess less than 1 cm in diameter. Patient's noting tenderness. No significant fluctuance. No signs of cellulitis present. Patient currently on IV fluids and IV antibiotics Medical history: Hypertension Surgical history: None \ Review of systems: General: No Fever, No Chills, No Night Sweats, No Fatigue, No Malaise, No Appetite, No Other HEENT: No Head Aches, No Visual Changes, No Eye Pain, No Ear Pain, No Dysphasia, No Sinus Congestion, No Post Nasal Drip, No Sore Throat, No Other Pulmonary: No Dyspnea, No Cough, No Pleuritic Chest Pain, No Other Cardiovascular: No: Chest Pain, Palpitations, Orthopnea, Paroxysmal No Dyspnea, Edema, Lt Headedness, Other Gastrointestinal: No: Nausea, Vomiting, Diarrhea, Constipation, Melena, Hematochezia, Other Genitourinary: No Dysuria, No Frequency, No Incontinence, No Hematuria, No Retention, No Other Musculoskeletal: No: other, neck pain, shoulder pain, arm pain, back pain, hand pain, leg pain, foot pain Skin: No Urticaria, No Rash, No Other Neurological: No: Weakness, Numbness, Incoordination, Change in speech, Confusion, Seizures, Other Physical exam: General: Awake alert and oriented Heart: Regular rate and rhythm} Lungs: Clear to auscultation no distress Abdomen: [Soft, nontender, nondistended Small palpable mass nodule abscess to right gluteal region tender no signs of cellulitis Assessment: This is a 49-year-old male with concerns of right gluteal abscess Plan: At this point in time given dimensions of concerning abscess patient was to c ontinue with the IV fluids and IV antibiotics Patient also be started on warm compresses Patient to be re-evaluated tomorrow Surgical team to follow patient closely Dr. Land to be updated in patient's status LUIS POLK Jr. Nov 17, 2024 16:41
[2024-11-17 20:00] VITALS: BP 140/80; PULSE 75; RESP 19; TEMP 98
--- NOTE | 2024-11-17 20:07 | HMCIMG ---
Bilateral lower extremity arterial Duplex and color-flow Doppler History: R/O PVD Comparison: None Findings: The examination shows no significant plaque formation. Flow is preserved at all interrogated vessels of both lower extremity arterial systems. There is no evidence of elevation of velocities to suggest significant stenosis. There is no occlusion. There is no aneurysm or pseudoaneurysm. There is no dissection. Impression: Normal bilateral lower extremity arterial exam. No worrisome interval changes since the last exam.
--- NOTE | 2024-11-17 23:25 | CONS ---
INFECTIOUS DISEASE CONSULTATION NOTE Date of Service: Nov 17, 2024 Reason for Consultation: Left foot blisters. Requesting Physician: Dr. Rocky Batista. HISTORY OF PRESENT ILLNESS: This is a 49-year-old male patient with past medical history of hypertension who presented to the emergency room for chief complaint of blisters and swelling to the left foot and a pimple to the right buttocks. Reported that he went to see his PCP regarding the pimple and was started on Bactrim and developed blisters to the left foot and left hand after a couple of doses and he stopped taking it. On admission patient had a low-grade fever of 99.5 and was tachycardic. The WBC was 10.4. Patient has been started on doxycycline. On examination today in room 305. The soft tissue ultrasound showed a right buttocks subcutaneous abscess measuring 13 x 6 x 11 mm hoever on examination the right gluteal abscess is small. We will add vancomycin per pharmacy protocol. REVIEW OF SYSTEMS CONSTITUTIONAL: Denies fever, chills, or fatigue. HEAD/FACE: No signs of trauma. EENT: Denies eye pain, blurred vision, double vision, or light sensitivity. RESPIRATORY: Denies shortness of breath, cough, wheezing CARDIOVASCULAR: Denies chest pain, palpitation, syncope GASTROINTESTINAL/ABDOMINAL: Denies abdominal pain, constipation, diarrhea, nausea or vomiting GENITOURINARY: Denies dysuria or hematuria. MUSCULOSKELETAL: Denies joint pain, tenderness, or trauma. INTEGUMENTARY: Denies rash or itchiness. Blister on the left great toe and plantar of left foot. NEUROLOGICAL/PSYCH: Denies anxiety, depression, heat or cold intolerance. PAST MEDICAL HISTORY: Hypertension. PAST SURGICAL HISTORY: No history of surgeries. PAST SOCIAL HISTORY: Denies the use of tobacco, alcohol or any other illicit drug. FAMILY HISTORY: Father has hypertension. Coded Allergies: sulfamethoxazole (Unverified Allergy, Severe, HIVES, 11/15/24) PHYSICAL EXAM EYES: Anicteric. Pupils equal and reactive. HENT: No oral thrush seen, moist Oral mucosa NECK: Supple, no JVD or thyromegaly. LUNGS: Good air entry. No rales, no rhonchi. CARDIOVASCULAR: S1, S2 regular. No murmur heard. ABDOMEN: Soft, non tender, bowel sounds present, no organomegaly CENTRAL NERVOUS SYSTEM: Awake, alert, oriented x 3. SKIN: No rashes, no swelling. Blister on the left great toe and plantar of left foot. LYMPHATICS: No peripheral lymphadenopathy MUSCULOSKELETAL: No joint swelling, erythema or tenderness. EXTREMITIES: No cyanosis or clubbing. BACK: No deformity, no pressure ulcer. Right gluteal abscess. GENITOURINARY: No dysuria or hematuria Vital Sign (Last 24 Hours) 11/17/24 20:00 Temp 98.1 Pulse 75 Resp 19 B/P (MAP) 140/80 Pulse Ox 97 O2 Delivery Room Air O2 Flow Rate 0 FiO2 21 Intake & Output (last 24hrs) 11/16/24 11/16/24 11/17/24 15:00 23:00 07:00 Intake Total 250.0 ml Output Total 700 ml Balance -450.0 ml LABS: Laboratory: Test 11/17/24 04:11 11/16/24 04:28 Range/Units White Blood Count 14.0 H 4.8-10.8 K/uL Red Blood Count 4.54 4.50-6.20 MIL/uL Hemoglobin 13.4 L 14.0-18.0 g/dL Hematocrit 41.1 L 42-54 % Mean Corpuscular Volume 90.5 79-99 fL Mean Corpuscular Hemoglobin 29.5 27.0-33.0 pg Mean Corpuscular Hemoglobin Concent 32.6 32.0-36.0 g/dL Red Cell Distribution Width 13.8 11.0-15.5 % Platelet Count 275 130-400 K/uL Mean Platelet Volume 9.3 7.5-10.5 fL Immature Granulocyte % (Auto) 2.3 H 0-1 % Neutrophils (%) (Auto) 81.4 H 40.0-77.0 % Lymphocytes (%) (Auto) 11.1 L 21.0-51.0 % Monocytes (%) (Auto) 4.9 3.0-13.0 % Eosinophils (%) (Auto) 0.1 0.0-8.0 % Basophils (%) (Auto) 0.2 0.0-5.0 % Neutrophils # (Auto) 11.4 H 1.8-7.7 K/uL Lymphocytes # (Auto) 1.6 1.0-4.8 K/uL Monocytes # (Auto) 0.7 0.1-1.0 K/uL Eosinophils # (Auto) 0.01 0.00-0.70 K/uL Basophils # (Auto) 0.03 0.00-0.20 K/uL Absolute Immature Granulocyte (auto 0.32 0-1 K/uL Nucleated Red Blood Cells 0.0 0.0-0.19 % Sodium Level 140 136-145 mmol/L Potassium Level 4.1 3.5-5.1 mmol/L Chloride Level 106 101-111 mmol/L Carbon Dioxide Level 27 21-32 mmol/L Blood Urea Nitrogen 18 7-18 mg/dL Creatinine 1.0 0.5-1.3 mg/dL Glomerular Filtration Rate Calc 91 >90 mL/min Random Glucose 137 H 70-105 mg/dL Total Calcium 8.3 L 8.5-10.1 mg/dL Total Bilirubin 0.3 0.2-1.0 mg/dL Aspartate Amino Transf (AST/SGOT) 17 10-37 U/L Alanine Aminotransferase (ALT/SGPT) 28 12-78 U/L Alkaline Phosphatase 85 50-136 U/L C-Reactive Protein, Quantitative 8.00 H 0.5-3.0 mg/L Total Protein 6.4 6.0-8.3 g/dL Albumin 3.2 L 3.5-5.0 g/dL Procalcitonin < 0.05 L 0.05-0.5 ng/mL ASSESSMENT: Right gluteal abscess. Blisters to left foot, possible bullous drug reaction to Bactrim. Leukocytosis. Hypertension. PLAN: Start vancomycin per pharmacy protocol. Continue doxycycline as currently ordered. Obtain arterial Dopplers to bilateral lower extremities. Continue pain management. Continue GI prophylaxis. Consult for allowing ID to participate in the care of this patient. This case was reviewed and discussed with my supervising physician and the above assessment and plan was formulated and agreed upon. ATTESTATION BY PHYSICIAN I have seen and examined the patient. I reviewed the documentation, medical decision making, and treatment plan as noted by the mid-level provider above. I agree with the findings and plan of care. VEENA SORTO MD, MIRTA L [facility] Nov 17, 2024 23:25
[2024-11-17] MEDS ORDERED: VANCOMYCIN 1G/250ML KIT 250 ML IV SCH (23:45)
[2024-11-18 00:16] VITALS: BP 148/82; PULSE 96; RESP 17; TEMP 98
[2024-11-18] MEDS ORDERED: VANCOMYCIN 1G/250ML KIT 250 ML IV ONE (02:00)
[2024-11-18 04:44] VITALS: BP 127/84; PULSE 61; RESP 16; TEMP 98.2
[2024-11-18 04:53] LABS: BASOPHILS # (AUTO) 0.05 K/uL (0.00-0.20); BASOPHILS % (AUTO) 0.4 % (0.0-5.0); HEMATOCRIT 40.6 % (42-54); LYMPHOCYTES % (AUTO) 15.4 % (21.0-51.0); MEAN CORPUSCULAR HEMOGLOBIN 29.3 pg (27.0-33.0); MEAN CORPUSCULAR VOLUME 88.8 fL (79-99); MONOCYTES # (AUTO) 0.7 K/uL (0.1-1.0); MONOCYTES % (AUTO) 5.6 % (3.0-13.0); NEUTROPHILS # (AUTO) 9.7 K/uL (1.8-7.7); PLATELET COUNT (AUTO) 314 K/uL (130-400); RED BLOOD CELL COUNT(AUTO) 4.57 MIL/uL (4.50-6.20); RED CELL DISTRIBUTION WIDTH 13.7 % (11.0-15.5)
[2024-11-18 07:41] VITALS: BP 142/85; PULSE 64; RESP 19; TEMP 97.8
[2024-11-18 08:00] VITALS: O2SAT 95
[2024-11-18] MEDS: VANCOMYCIN 1G/250ML KIT 250 ML IV SCH (11:44)
[2024-11-18 12:00] VITALS: BP 154/91; PULSE 70; RESP 20; TEMP 98.1
--- NOTE | 2024-11-18 15:14 | PN ---
INFECTIOUS DISEASE PROGRESS NOTE Date of Service: Nov 18, 2024 SUBJECTIVE: [ ] PHYSICAL EXAM EYES: Anicteric. Pupils equal and reactive. HENT: No oral thrush seen, moist Oral mucosa NECK: Supple, no JVD or thyromegaly. LUNGS: Good air entry. No rales, no rhonchi. CARDIOVASCULAR: S1, S2 regular. No murmur heard. ABDOMEN: Soft, non tender, bowel sounds present, no organomegaly CENTRAL NERVOUS SYSTEM: Awake, alert, oriented x 3. SKIN: No rashes, no swelling. Blister on the left great toe and plantar of left foot. LYMPHATICS: No peripheral lymphadenopathy MUSCULOSKELETAL: No joint swelling, erythema or tenderness. EXTREMITIES: No cyanosis or clubbing. BACK: No deformity, no pressure ulcer. Right gluteal abscess. GENITOURINARY: No dysuria or hematuria Vital Sign (Last 12 Hours) 11/18/24 11/18/24 11/18/24 04:44 07:41 12:00 Temp 98.2 97.9 98.1 Pulse 61 64 70 Resp 16 19 20 B/P (MAP) 127/84 142/85 154/91 Pulse Ox 97 96 95 O2 Delivery Room Air Room Air Room Air Intake & Output (last 24hrs) 11/17/24 11/17/24 11/18/24 15:00 23:00 07:00 Intake Total 2070.0 ml Output Total 300 ml Balance 1770.0 ml LABS: Laboratory: Test 11/18/24 04:27 11/17/24 04:11 Range/Units White Blood Count 13.0 H 4.8-10.8 K/uL Red Blood Count 4.57 4.50-6.20 MIL/uL Hemoglobin 13.4 L 14.0-18.0 g/dL Hematocrit 40.6 L 42-54 % Mean Corpuscular Volume 88.8 79-99 fL Mean Corpuscular Hemoglobin 29.3 27.0-33.0 pg Mean Corpuscular Hemoglobin Concent 33.0 32.0-36.0 g/dL Red Cell Distribution Width 13.7 11.0-15.5 % Platelet Count 314 130-400 K/uL Mean Platelet Volume 9.3 7.5-10.5 fL Immature Granulocyte % (Auto) 4.6 H 0-1 % Neutrophils (%) (Auto) 74.0 40.0-77.0 % Lymphocytes (%) (Auto) 15.4 L 21.0-51.0 % Monocytes (%) (Auto) 5.6 3.0-13.0 % Eosinophils (%) (Auto) 0.0 0.0-8.0 % Basophils (%) (Auto) 0.4 0.0-5.0 % Neutrophils # (Auto) 9.7 H 1.8-7.7 K/uL Lymphocytes # (Auto) 2.0 1.0-4.8 K/uL Monocytes # (Auto) 0.7 0.1-1.0 K/uL Eosinophils # (Auto) 0.00 0.00-0.70 K/uL Basophils # (Auto) 0.05 0.00-0.20 K/uL Absolute Immature Granulocyte (auto 0.60 0-1 K/uL Nucleated Red Blood Cells 0.0 0.0-0.19 % Sodium Level 140 136-145 mmol/L Potassium Level 4.0 3.5-5.1 mmol/L Chloride Level 105 101-111 mmol/L Carbon Dioxide Level 28 21-32 mmol/L Blood Urea Nitrogen 17 7-18 mg/dL Creatinine 1.0 0.5-1.3 mg/dL Glomerular Filtration Rate Calc 91 >90 mL/min Random Glucose 122 H 70-105 mg/dL Total Calcium 8.4 L 8.5-10.1 mg/dL C-Reactive Protein, Quantitative 3.60 H 0.5-3.0 mg/L Total Bilirubin 0.3 0.2-1.0 mg/dL Aspartate Amino Transf (AST/SGOT) 17 10-37 U/L Alanine Aminotransferase (ALT/SGPT) 28 12-78 U/L Alkaline Phosphatase 85 50-136 U/L Total Protein 6.4 6.0-8.3 g/dL Albumin 3.2 L 3.5-5.0 g/dL ASSESSMENT: Right gluteal abscess. Drug reaction to Bactrim. Leukocytosis. Hypertension. PLAN: From Infectious Disease Standpoint patient can be discharged to home on doxycycline 100 mg p.o. b.i.d. x 10 days. This case was reviewed and discussed with my supervising physician and the above assessment and plan was formulated and agreed upon. ATTESTATION BY PHYSICIAN I have seen and examined the patient. I reviewed the documentation, medical decision making, and treatment plan as noted by the mid-level provider above. I agree with the findings and plan of care. VEENA SORTO MD, MIRTA L [facility] Nov 18, 2024 15:14
--- NOTE | 2024-11-18 15:15 | PN ---
This is 49-year-old male status post allergic reaction with concerns of right gluteal abscess Interval history: This is a 49-year-old male seen in his room resting White count still slightly elevated No significant changes to concerning gluteal site ID following patient No acute events reported overnight Physical exam General: Awake alert and oriented Heart: Regular rate and rhythm} Lungs: Clear to auscultation no distress Abdomen: [Soft, nontender, nondistended Small nodule cyst-like structure to right gluteal region less than 1 cm in diameter Assessment : This is a 49-year-old male with concerns of right gluteal abscess Plan: Continue with warm compresses No surgical intervention planned at this time Continue with the IV fluids and IV antibiotics Patient to be re-evaluated tomorrow Dr. Land to be updated in patient's status Vitals/Labs Vital Signs Date Time Temp Pulse Resp B/P (MAP) Pulse Ox O2 Delivery O2 Flow Rate FiO2 11/18/24 12:00 98.1 70 20 154/91 95 Room Air 11/17/24 20:00 0 21 Laboratory Tests 11/18/24 04:27 Medications Current Medications Methylprednisolone Sodium Succinate 40 mg ONCE ONCE IVP Last administered on 11/14/24at 22:17; Start 11/14/24 at 22:00; Stop 11/14/24 at 22:01; Status DC Diphenhydramine HCl 25 mg ONCE ONCE IV Last administered on 11/14/24at 22:25; Start 11/14/24 at 22:30; Stop 11/14/24 at 22:31; Status DC Famotidine 20 mg ONCE ONCE IV Last administered on 11/14/24at 22:25; Start 11/14/24 at 22:30; Stop 11/14/24 at 22:31; Status DC Clindamycin HCl/ Dextrose 900 mg ONCE ONCE IV Last administered on 11/15/24at 00:51; Start 11/15/24 at 00:30; Stop 11/15/24 at 00:31; Status DC Acetaminophen 650 mg Q6H PRN PO; Start 11/15/24 at 02:00; Stop 12/15/24 at 01:59 Acetaminophen 650 mg Q4H PRN PO Last administered on 11/16/24at 22:17; Start 11/15/24 at 02:00; Stop 12/15/24 at 01:59 Ondansetron HCl 4 mg Q6H PRN IV; Start 11/15/24 at 02:00; Stop 12/15/24 at 01:59 Clindamycin HCl/ Dextrose 50 ml @ 100 mls/hr Q8H IV Last administered on 11/15/24at 08:44; Start 11/15/24 at 09:00; Stop 11/15/24 at 10:02; Status DC Sodium Chloride 1,000 ml @ 100 mls/hr Q10H IV Last administered on 11/18/24at 11:44; Start 11/15/24 at 02:00; Stop 12/15/24 at 01:59 Hydralazine HCl 10 mg Q6H PRN IV; Start 11/15/24 at 02:00; Stop 12/15/24 at 01:59 Famotidine 20 mg BID IV Last administered on 11/18/24at 07:49; Start 11/15/24 at 09:00; Stop 12/15/24 at 08:59 Ketorolac Tromethamine 15 mg Q6H PRN IV; Start 11/15/24 at 02:00; Stop 11/16/24 at 12:33; Status DC Methylprednisolone Sodium Succinate 40 mg BID IVP Last administered on 11/18/24at 07:49; Start 11/15/24 at 09:00; Stop 12/15/24 at 08:59 Diphenhydramine HCl 25 mg Q6H PRN IV; Start 11/15/24 at 02:00; Stop 12/15/24 at 01:59 Doxycycline Hyclate 250 ml @ 125 mls/hr Q12H IV Last administered on 11/18/24at 02:01; Start 11/15/24 at 14:30; Stop 11/25/24 at 14:29 Diphenhydramine HCl 25 mg Q8H PO Last administered on 11/18/24at 11:44; Start 11/16/24 at 11:30; Stop 12/16/24 at 11:29 Vancomycin HCl 1 each AD IV; Start 11/17/24 at 12:00; Stop 12/01/24 at 11:59 Vancomycin HCl 500 ml @ 250 mls/hr ONCE ONCE IV Last administered on 11/17/24at 15:31; Start 11/17/24 at 12:00; Stop 4/21/25 at 13:59; Status DC Vancomycin HCl 250 ml @ 125 mls/hr ONCE ONCE IV; Start 11/18/24 at 02:00; Stop 11/17/24 at 23:33; Status DC Vancomycin HCl 250 ml @ 125 mls/hr Q12H IV; Start 11/17/24 at 23:45; Stop 11/17/24 at 23:50; Status DC Vancomycin HCl 250 ml @ 125 mls/hr Q12H IV Last administered on 11/18/24at 11:44; Start 11/18/24 at 12:00; Stop 11/28/24 at 11:59 LUIS POLK Jr. PA Nov 18, 2024 15:15
--- NOTE | 2024-11-18 15:39 | DS ---
Discharge Summary Hospital Course Summary: 49-year-old male with past medical history of hypertension presented to the ED for complaints of redness , blisters on his left foot and swelling of both hands and feet with burning sensation .Patient reports he has a pimple ,possible boil on his right buttock and saw his PCP yesterday and was prescribed him with Bactrim - he took 2 doses of it in total and he stopped immediately after he got this symptoms. Patient reports he developed chills and body aches so he decided to come to the ED for evaluation . Upon ER arrival vital signs temperature 99.5, heart rate 102, blood pressure 148/101 saturation 100% on room air. Labs at the time of presentation: WBC 10, hemoglobin 14, hematocrit 43 platelet count 281, Eosinophils 0.74. BUN 21, creatinine 1.2, GFR 73 glucose 107, total calcium 8.6. He was admitted for further evaluation and management . Due to sudden onset of his symptoms(<24 hours after initiation of the drug),and no mucosal involvement , he is diagnosed with a severe allergic reaction , possible Ig E mediated type I hypersensitivity reaction to Bactrim . Nikolsky sign was negative. Cosme Aldair syndrome is ruled out . His rashes resolved gradually and he was symptomatically improving. Labs showed downtrending of CRP levels. Surgery recommended warm compress to the rt gluteal abscess. Id recommended 10 days of oral doxycycline . Wound care suggested Betadine paint to the blisters . He is clinically stable at the time of discharge . Chief Nuclear Medicine Technologist(s): CONSULT NOTE: Consulting physician:Dr Batista Consulting service: General surgery Reason for consultation: Right gluteal abscess History of present illness: This is a 49-year-old male consulted to surgery after presenting hospital for concerns of allergic reaction to antibiotic given by PCP concerns of boils right buttock region. Imaging performed and concerns possible abscess less than 1 cm in diameter. Patient's noting tenderness. No significant fluctuance. No signs of cellulitis present. Patient currently on IV fluids and IV antibiotics Medical history: Hypertension Surgical history: None \ Review of systems: General: No Fever, No Chills, No Night Sweats, No Fatigue, No Malaise, No Appetite, No Other HEENT: No Head Aches, No Visual Changes, No Eye Pain, No Ear Pain, No Dysphasia, No Sinus Congestion, No Post Nasal Drip, No Sore Throat, No Other Pulmonary: No Dyspnea, No Cough, No Pleuritic Chest Pain, No Other Cardiovascular: No: Chest Pain, Palpitations, Orthopnea, Paroxysmal No Dyspnea, Edema, Lt Headedness, Other Gastrointestinal: No: Nausea, Vomiting, Diarrhea, Constipation, Melena, Hematochezia, Other Genitourinary: No Dysuria, No Frequency, No Incontinence, No Hematuria, No Retention, No Other Musculoskeletal: No: other, neck pain, shoulder pain, arm pain, back pain, hand pain, leg pain, foot pain Skin: No Urticaria, No Rash, No Other Neurological: No: Weakness, Numbness, Incoordination, Change in speech, Confusion, Seizures, Other Physical exam: General: Awake alert and oriented Heart: Regular rate and rhythm} Lungs: Clear to auscultation no distress Abdomen: [Soft, nontender, nondistended Small palpable mass nodule abscess to right gluteal region tender no signs of cellulitis Assessment: This is a 49-year-old male with concerns of right gluteal abscess Plan: At this point in time given dimensions of concerning abscess patient was to continue with the IV fluids and IV antibiotics Patient also be started on warm compresses Patient to be re-evaluated tomorrow Surgical team to follow patient closely Dr. Land to be updated in patient's status LUIS POLK Jr. Nov 17, 2024 16:41 Electronically Signed by: MACY MERAZ Jr., MACY11/17/24 164 INFECTIOUS DISEASE CONSULTATION NOTE Date of Service: Nov 17, 2024 Reason for Consultation: Left foot blisters. Requesting Physician: Dr. Rocky Batista. HISTORY OF PRESENT ILLNESS: This is a 49-year-old male patient with past medical history of hypertension who presented to the emergency room for chief complaint of blister on swollen to go left foot and cefepime continue right buttocks. Reported that he went to see his PCP and was started on Bactrim was started and developed blisters after a couple of doses and stopped taking it. On admission patient had a low-grade fever 99.5 and was tachycardic. The WBC was 10.4. REVIEW OF SYSTEMS CONSTITUTIONAL: Denies fever, chills, or fatigue. HEAD/FACE: No signs of trauma. EENT: Denies eye pain, blurred vision, double vision, or light sensitivity. RESPIRATORY: Denies shortness of breath, cough, wheezing CARDIOVASCULAR: Denies chest pain, palpitation, syncope GASTROINTESTINAL/ABDOMINAL: Denies abdominal pain, constipation, diarrhea, nausea or vomiting GENITOURINARY: Denies dysuria or hematuria. MUSCULOSKELETAL: Denies joint pain, tenderness, or trauma. INTEGUMENTARY: Denies rash or itchiness. Blister on the left great toe and plantar of left foot. NEUROLOGICAL/PSYCH: Denies anxiety, depression, heat or cold intolerance. PAST MEDICAL HISTORY: Hypertension. PAST SURGICAL HISTORY: No history of surgeries. PAST SOCIAL HISTORY: Denies the use of tobacco, alcohol or any other illicit drug. FAMILY HISTORY: Father has hypertension. Coded Allergies: sulfamethoxazole (Unverified Allergy, Severe, HIVES, 11/15/24) PHYSICAL EXAM EYES: Anicteric. Pupils equal and reactive. HENT: No oral thrush seen, moist Oral mucosa NECK: Supple, no JVD or thyromegaly. LUNGS: Good air entry. No rales, no rhonchi. CARDIOVASCULAR: S1, S2 regular. No murmur heard. ABDOMEN: Soft, non tender, bowel sounds present, no organomegaly CENTRAL NERVOUS SYSTEM: Awake, alert, oriented x 3. SKIN: No rashes, no swelling. Blister on the left great toe and plantar of left foot. LYMPHATICS: No peripheral lymphadenopathy MUSCULOSKELETAL: No joint swelling, erythema or tenderness. EXTREMITIES: No cyanosis or clubbing. BACK: No deformity, no pressure ulcer. Right gluteal abscess. GENITOURINARY: No dysuria or hematuria Vital Sign (Last 24 Hours) 11/17/24 20:00 Temp 98.1 Pulse 75 Resp 19 B/P (MAP) 140/80 Pulse Ox 97 O2 Delivery Room Air O2 Flow Rate 0 FiO2 21 Intake & Output (last 24hrs) 11/16/24 11/16/24 11/17/24 15:00 23:00 07:00 Intake Total 250.0 ml Output Total 700 ml Balance -450.0 ml LABS: Laboratory: Test 11/17/24 04:11 11/16/24 04:28 Range/Units White Blood Count 14.0 H 4.8-10.8 K/uL Red Blood Count 4.54 4.50-6.20 MIL/uL Hemoglobin 13.4 L 14.0-18.0 g/dL Hematocrit 41.1 L 42-54 % Mean Corpuscular Volume 90.5 79-99 fL Mean Corpuscular Hemoglobin 29.5 27.0-33.0 pg Mean Corpuscular Hemoglobin Concent 32.6 32.0-36.0 g/dL Red Cell Distribution Width 13.8 11.0-15.5 % Platelet Count 275 130-400 K/uL Mean Platelet Volume 9.3 7.5-10.5 fL Immature Granulocyte % (Auto) 2.3 H 0-1 % Neutrophils (%) (Auto) 81.4 H 40.0-77.0 % Lymphocytes (%) (Auto) 11.1 L 21.0-51.0 % Monocytes (%) (Auto) 4.9 3.0-13.0 % Eosinophils (%) (Auto) 0.1 0.0-8.0 % Basophils (%) (Auto) 0.2 0.0-5.0 % Neutrophils # (Auto) 11.4 H 1.8-7.7 K/uL Lymphocytes # (Auto) 1.6 1.0-4.8 K/uL Monocytes # (Auto) 0.7 0.1-1.0 K/uL Eosinophils # (Auto) 0.01 0.00-0.70 K/uL Basophils # (Auto) 0.03 0.00-0.20 K/uL Absolute Immature Granulocyte (auto 0.32 0-1 K/uL Nucleated Red Blood Cells 0.0 0.0-0.19 % Sodium Level 140 136-145 mmol/L Potassium Level 4.1 3.5-5.1 mmol/L Chloride Level 106 101-111 mmol/L Carbon Dioxide Level 27 21-32 mmol/L Blood Urea Nitrogen 18 7-18 mg/dL Creatinine 1.0 0.5-1.3 mg/dL Glomerular Filtration Rate Calc 91 >90 mL/min Random Glucose 137 H 70-105 mg/dL Total Calcium 8.3 L 8.5-10.1 mg/dL Total Bilirubin 0.3 0.2-1.0 mg/dL Aspartate Amino Transf (AST/SGOT) 17 10-37 U/L Alanine Aminotransferase (ALT/SGPT) 28 12-78 U/L Alkaline Phosphatase 85 50-136 U/L C-Reactive Protein, Quantitative 8.00 H 0.5-3.0 mg/L Total Protein 6.4 6.0-8.3 g/dL Albumin 3.2 L 3.5-5.0 g/dL Procalcitonin < 0.05 L 0.05-0.5 ng/mL ASSESSMENT: Right gluteal abscess. Blisters to left foot, possible bullous drug reaction to Bactrim. Leukocytosis. Hypertension. PLAN: Start vancomycin per pharmacy protocol. Continue doxycycline as currently ordered. Obtain arterial Dopplers to bilateral lower extremities. Continue pain management. Continue GI prophylaxis. Consult for allowing ID to participate in the care of this patient. This case was reviewed and discussed with my supervising physician and the above assessment and plan was formulated and agreed upon. ATTESTATION BY PHYSICIAN I have seen and examined the patient. I reviewed the documentation, medical decision making, and treatment plan as noted by the mid-level provider above. I agree with the findings and plan of care. VEENA SORTO MD Procedure(s): PROCEDURE: LOW EXT WO - CT LOW EXT W/O CONTRAST CT LOW EXT W/O CONTRAST HISTORY: left foot wound TECHNIQUE: CT LOW EXT W/O CONTRAST. Axial images of the left foot were performed. Coronal and sagittal reformats were obtained. FINDINGS/IMPRESSION: No displaced fracture or dislocation is seen. Mild diffuse soft tissue swelling is noted. No definite erosive changes are seen to suggest osteomyelitis. Correlate clinically. DICTATED BY: JENNIFER YEAGER MD DATE: 11/15/241547 ELECTRONICALLY SIGNED BY: JENNIFER YEAGER MD DATE: 11/15/24 155 PROCEDURE: SOFT GROIN - US SOFT TISSUE GROIN US SOFT TISSUE GROIN REASON: right buttock wound/abscess. COMPARISON: None TECHNIQUE: Right buttock ultrasound study was performed. FINDINGS: Saline as changes are seen with soft tissue hyperemia. In the region of interest, there is small abscess measuring 13 x 6 x 11 mm. IMPRESSION: Right buttock subcutaneous abscess measuring 13 x 6 x 11 mm. DICTATED BY: BAMBI CAMARA MD DATE: 11/16/241907 ELECTRONICALLY SIGNED BY: BAMBI CAMARA MD DATE: 11/16/241911 PROCEDURE: ART B LE - US ARTERIAL BILAT LOW EXT DUPL Bilateral lower extremity arterial Duplex and color-flow Doppler History: R/O PVD Comparison: None Findings: The examination shows no significant plaque formation. Flow is preserved at all interrogated vessels of both lower extremity arterial systems. There is no evidence of elevation of velocities to suggest significant stenosis. There is no occlusion. There is no aneurysm or pseudoaneurysm. There is no dissection. Impression: Normal bilateral lower extremity arterial exam. No worrisome interval changes since the last exam. DICTATED BY: KIRK ADLER MD DATE: 11/17/242003 ELECTRONICALLY SIGNED BY: KIRK ADLER MD DATE: 11/17/242006 Assessment/Plan: DISCHARGE DIAGNOSIS Severe allergic reaction to Bactrim POA Suspected drug -induced skin reaction concern for bullous drug eruption POA Acute kidney injury , POA- resolved Drop in hemoglobin secondary to hemodilution Possible Furuncle of the right gluteal region POA Hypertension POA ASSESSMENT: Severe allergic reaction to Bactrim POA Suspected drug -induced skin reaction concern for bullous drug eruption POA Unlikely that patient has Cosme Aldair syndrome or TEN as the reaction happened immediately likely IgE mediated. But does look like Bactrim or sulfa drug associated drug reaction. Does not have mucosal lesions , no ocular or lung involvement at this point. There is no eosinophilia. There is no fever and no prodromal symptoms no mucositis or extensive epidermal detachment. Continue IV steroids IV H2 and H1 blockers. Possible Furuncle of the right gluteal region POA US : Right buttock subcutaneous abscess measuring 13 x 6 x 11 mm. Continue warm compress Hypertension POA Stable blood pressures Discharge Instructions: DATE OF ADMISSION: 11.15.24 DATE OF DISCHARGE: 11.18.24 DISPOSITION: HOME CONDITION: Medically stable CONSULTANTS: GENERAL SURGERY, INFECTIOUS DISEASE FOLLOW UP APPOINTMENTS: Follow up with your primary care doctor in 2 to 3 days after the discharge . Follow up with [facility] for a possible allergy work up. PROCEDURES:NA IMAGING: report attached to summary MICROBIOLOGY: report attached to summary HOME MEDICATIONS: see med rec NEW MEDICATIONS: See medication reconciliation EMERGENCY INSTRUCTIONS: The patient was instructed to present to the nearest Emergency departmentr or call 911 once their symptoms will return or worsen Home Medications: Reported Medications Sulfamethoxazole/Trimethoprim (Bactrim Ds Tablet) 800 Mg-160 Mg Tablet, 1 TAB PO BID, TAB 11/15/24 Amlodipine Besylate (Amlodipine Besylate) 10 Mg Tablet, 1 TAB PO DAILYLUNCH 11/15/24 Discontinued Scripts Prednisone (Prednisone) 50 Mg Tablet, 50 MG PO DAILY for 5 Days, #5 TAB 0 Refills Prov:AICHA GRANADOS MD 01/03/23 Valacyclovir HCl (Valtrex) 1,000 Mg Tablet, 1000 MG PO TID for 7 Days, #21 TAB 0 Refills Prov:AICHA GRANADOS MD 01/03/23 Time spent arranging discharge: 1-30 minutes ATTESTATION BY PHYSICIAN I have seen and examined the patient. I reviewed the documentation, medical decision making, and treatment plan as noted by the resident provider above. I a gree with the findings and plan of care. Eleuterio Georges MD, ANCHU A MD Nov 18, 2024 15:39
[2024-11-18] MEDS ORDERED: DIPH25CA85 PO (15:47)
[2024-11-18] MEDS ORDERED: FAMO20TA8 PO (15:47)
[2024-11-18] MEDS ORDERED: PRED5TAB PO (15:47)
[2024-11-18] MEDS ORDERED: PRED10TA3 PO (15:47)
[2024-11-18] MEDS ORDERED: DOXY100C5 PO (15:47)
--- NOTE | 2024-11-18 18:45 | NUR ---
DC NOTE DC INSTRUCTIONS AND FOLLOW UP APPOINTMENT GIVEN TO PT, E-SCRIPT WAS SENT TO PT'S LOCAL PHARMACY. VERBALIZED UNDERSTANDING. PIV REMOVED, CATHETER INTACT, DENIES ANY PAIN OR DISCOMFORT AT THIS TIME. MADE PT AWARE AFTER BEING CONCERN ABOUT HIS BLISTER TO LEFT FOOT, MADE PT MADE AWARE NOT TO POKE OR MESS WITH IT. 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 NO FURTHER COMMENTS OR CONCERNS AT THIS TIME.
--- NOTE | 2024-11-20 12:35 | NUR ---
Transitional Phone Call Spoke to patient, states "so far so good." States picked up his new prescription medications; no questions or concerns. States he followed up with his PCP - Dr. Erik Trujillo today, 11/20/2024 and "all is well." States he will make the followup [facility] appointment with Dr. Noe today. No questions or concerns.
== END 2024-11-18 18:45 | disposition home or self-care (01) | DRG 603 ==
LOC: EDH 21:26 → EDHIP 11-15 01:34 → 3BH 11-15 03:00
PROVIDERS: ADMIT Internal Medicine; ATTEND Internal Medicine
DX: L02.31 Cutaneous abscess of buttock (principal); N17.9 Acute kidney failure, unspecified; R71.0 Precipitous drop in hematocrit; S90.822A Blister (nonthermal), left foot, initial encounter; T36.8X5A Adverse effect of other systemic antibiotics, initial encounter; D72.829 Elevated white blood cell count, unspecified; I10 Essential (primary) hypertension; M79.89 Other specified soft tissue disorders; R00.0 Tachycardia, unspecified; X58.XXXA Exposure to other specified factors, initial encounter; Z82.49 Family history of ischemic heart disease and other diseases of the circulatory system; Y93.89 Activity, other specified; Y99.8 Other external cause status; Y92.89 Other specified places as the place of occurrence of the external cause
CPT/HCPCS: 36415; 73700; 76882; 80048; 80053; 82785; 83605; 83735; 84145; 85025; 85651; 86140; 87040; 93925; 99285; G0378; J1200; J2919; J3370; J3490; Q0163

== ENCOUNTER → 2025-02-13 | Outpatient (CLI) | payer OTHER ==
[~2025-02-13] MED LIST changes: +AMLO-258 PO; +DIPH25CA85 PO; +DOXY100C5 PO; +FAMO20TA8 PO; +PRED10TA3 PO; -PRED50TA2 PO; +PRED5TAB PO; -VALA10002 PO
--- NOTE | 2025-02-13 19:04 | HMCIMG ---
EXAM: Chest radiograph 2 view HISTORY: Rhinitis COMPARISON: 03/16/2022 FINDINGS: No pulmonary consolidations. No pleural effusion or pneumothorax. Normal cardiomediastinal silhouette and pulmonary vasculature. Degenerative changes. IMPRESSION: No acute cardiopulmonary disease. /[place]
== END | disposition home or self-care (01) ==
LOC: RAH 10:38
PROVIDERS: ATTEND Internal Medicine
DX: J31.0 Chronic rhinitis (principal)
CPT/HCPCS: 71046

== ENCOUNTER 2025-03-11 16:07 | Emergency (ER) | payer OTHER ==
[~2025-03-11] VITALS: Ht 172.7 cm; Wt 80.3 kg
[2025-03-11] MEDS ORDERED: IBUP-1492 PO (16:23)
--- NOTE | 2025-03-11 16:25 | ERN ---
ED Note History of Present Illness Stated Complaint: LEFT LEG PAIN Chief Complaint: Lower Extremity Pain/Injury Time Seen by MD: 16:10 Time Seen by Midlevel: 16:10 Dictation: 50-year-old male presents ED for evaluation of left hamstring pain for the past few days. Reports he was stretching as he normally does when he reports he felt a pop and has had pain since. Reports he has been ambulatory with a limp secondary to pain. Reports he went to PCP today who was supposed to order an MRI but was unable to do so was coming in today to the emergency room requesting the MRI Allergies: Coded Allergies: sulfamethoxazole (Unverified Allergy, Severe, HIVES, 11/15/24) Home Meds Active Scripts Diphenhydramine HCl (Benadryl) 25 Mg Capsule, 1 CAP PO HS for 15 Days, #15 CAP 0 Refills Prov:NICOLÁS NELSON MD 11/18/24 Famotidine (Famotidine) 20 Mg Tablet, 1 TAB PO BID for 15 Days, #30 TAB 0 Refills Prov:NICOLÁS NELSON MD 11/18/24 Prednisone (Prednisone) 5 Mg Tablet, 1 TAB PO DAILY for 5 Days, #5 TAB 0 Refills Please take 5 mg tablets after completing 10 mg tablet for 5 days . Prov:NICOLÁS NELSON MD 11/18/24 Prednisone (Prednisone) 10 Mg Tablet, 1 TAB PO BID for 5 Days, #10 TAB 0 Refills Please take 10 mg tablet 5 days . Prov:NICOLÁS NELSON MD 11/18/24 Doxycycline Hyclate (Doxycycline Hyclate) 100 Mg Capsule, 1 CAP PO BID for 10 Days, #20 CAP 0 Refills Prov:NICOLÁS NELSON MD 11/18/24 Reported Medications Amlodipine Besylate (Amlodipine Besylate) 10 Mg Tablet, 1 TAB PO DAILYLUNCH 11/15/24 Past Medical History Past Medical History: Hypertension Surgical History: None Social History: Negative RN Note Reviewed/Agreed w/PFSH: Yes Review of System Dictation Constitutional: Negative for fever,chills, and weight loss Eyes: Negative for injury, pain,redness, and discharge ENT: Negative for injury,pain or swelling Cardiovascular: Negative for chest pain, palpitations, and edema Respiratory: Negative for shortness of breath, cough, and wheezing, Abdomen/GI: Negative for abdominal pain, nausea, vomiting, diarrhea, and constipation Back: Negative for injury and pain : Negative for injury, bleeding and discharge MS/Extremity: Negative for deformity Skin: Negative for rash, and discoloration Neuro: Negative for headache, weakness, numbness, tingling, and seizure Psych: Negative for suicide ideation, homicidal ideation, and hallucinations Review of Systems: was completed Initial Vital Sign VS Vital Signs Date Time Temp Pulse Resp B/P (MAP) Pulse Ox O2 Delivery O2 Flow Rate FiO2 03/11/25 16:08 98.1 82 16 134/85 98 Room Air Physical Exam Dictation General: awake, alert, NAD Head/Face: Normocephalic, atraumatic Eyes: PERRL, EOMI, vision at baseline ENT: oral cavity clear, TMs clear, no signs of infection Neck: Trachea midline, supple, no nuchal rigidity Cardiovascular: RRR, normal S1/S2, No MRGs, no JVD Respiratory: CTAB, no respiratory distress, No rales or wheezes Abdomen: Soft, non-tender, non-distended, normal bowel sounds, no guarding or rebound. Skin: Warm, dry, normal turgor, no rash MS/Extremity: Pulses equal, no cyanosis, neurovascular intact, FROM Neuro: COAx4, GCS 15, strength 5/5, CN 2-12 intact, normal cerebellar exam, normal gait, Psych: Normal behavior, mood, and affect normal ED Course ED Course Vital Signs Date Time Temp Pulse Resp B/P (MAP) Pulse Ox O2 Delivery O2 Flow Rate FiO2 03/11/25 16:08 98.1 82 16 134/85 98 Room Air Medical Decision Making MDM MDM: Differential diagnosis: Hamstring strain, , ruptured hamstring Rationale: Tests considered and ordered secondary to shared decision making include: Previous outside records reviewed: Old ER visits. Medications-Per medication reconciliation Need for hospitalization: Patient does not meet criteria for hospitalization. Need for emergency major/minor surgery: No Patient's prior external medical records from other ER visits were reviewed by me as indicated. Prior testing and results from previous visits were reviewed. Prior tests were taken into account with medical decision making and resource utilization, independent historian/historians were used to obtain complete medical history. I independently interpreted the test that were performed, results were reviewed by me and considered findings on radiology if ordered. Medical management and examination interpretation discussions were had by me with other qualified healthcare professionals as indicated for the patient's care. 50-year-old male presents ED for evaluation of left hamstring pain for the past few days. Reports he was stretching as he normally does when he reports he felt a pop and has had pain since. Reports he has been ambulatory with a limp secondary to pain. Reports he went to PCP today who was supposed to order an MRI but was unable to do so was coming in today to the emergency room requesting the MRI. No deformities. Patient is ambulatory. Educated patient that we do not do MRIs here in the emergency room and it is now short cut to get imaging done quicker if his PCP can not sent him to get one. Offered pain medication to give here in the ER and sent home with but stated that he already had some. Also offered to give crutches to alleviate pain with ambulating and denied. Patient will be discharged home recommended to follow up with PCP and we for MRI. Return precautions discussed with patient. DX & DISP Disposition: Discharge Departure Impression: Primary Impression: Hamstring injury Condition: Stable Scripts Ibuprofen (Ibuprofen) 600 Mg Tablet 1 TAB PO TID for pain for 10 Days, #30 TAB 0 Refills with food Prov: FARIBA PERALTA 03/11/25 Additional Instructions: DISCHARGE HOME. REST. FOLLOW UP WITH PRIMARY CARE DRShaheen IN 24 HOURS. RETURN TO THE ER FOR ANY ACUTE CHANGE. PATIENT WAS ALSO ADVISED TO FOLLOW-UP WITH PRIMARY CARE PHYSICIAN IN 1 TO 2 DAYS FOR CONTINUED MONITORING. ALL INSTRUCTIONS WERE GIVEN TO [place] TERM AND PATIENT AGREEABLE TO DISCHARGE AND PROPER FOLLOW-UP. Referrals: JEAN CLAUDE DEL CASTILLO MD (PCP) I have reviewed the case, and I agree with, Diagnosis and Plan FARIBA PERALTA Mar 11, 2025 16:25
[2025-03-11 16:29] VITALS: BP 134/82; PULSE 82; RESP 16; TEMP 98.1; O2SAT 98
== END 2025-03-11 16:36 | disposition home or self-care (01) ==
LOC: EDH 16:07
DX: S89.92XA Unspecified injury of left lower leg, initial encounter (principal); I10 Essential (primary) hypertension; Z79.52 Long term (current) use of systemic steroids; Z88.2 Allergy status to sulfonamides; X58.XXXA Exposure to other specified factors, initial encounter; Y93.89 Activity, other specified; Y92.89 Other specified places as the place of occurrence of the external cause; Y99.8 Other external cause status
CPT/HCPCS: 99282